=== PATIENT | female | born 1960 | race American Indian/Alaskan Native ===

== ENCOUNTER 2017-04-04 15:49 | Emergency (ER) | payer OTHER ==
[2017-04-04 16:16] VITALS: BMI 36.9
[2017-04-04] MEDS ORDERED: Piperacillin/Tazobact 3.375 gm 100 ML IVPB STA (16:36)
[2017-04-04] MEDS ORDERED: Vancomycin 1gm in NS 250ml 1 GM/250 ML BAG IVPB STA (16:36)
[2017-04-04 18:13] LABS: ADD MANUAL DIFF? NO
[2017-04-04 18:20] LABS: BASO # 0.02 K/mm3 (0.0-2.0); BASO % 0.3 % (0.0-3.0); EOS # 0.3 (0.0-0.7); EOS % 4.4 % (1.5-5.0); GRAN # 4.71 (1.4-6.5); GRAN % 70.9 % (50.0-68.0); HEMATOCRIT 39.8 % (36.0-48.0); LYMPH # 1.2 (1.2-3.4); LYMPH % 18.5 % (22.0-35.0); MEAN CELL VOLUME 89.2 fL (80.0-105.0); MEAN CORPUSCULAR HEMOGLOBIN 29.4 pg (25.0-35.0); MEAN CORPUSCULAR HGB CONC 32.9 g/dl (31.0-37.0); MEAN PLATELET VOLUME 9.4 fl (7.0-11.0); MONO # 0.4 (0.1-0.6); MONO % 5.9 % (1.0-6.0); PLATELET COUNT 294 10^3/uL (120.0-450.0); RED CELL DISTRIBUTION WIDTH 12.9 % (11.5-14.5); WHITE BLOOD COUNT 6.6 10^3/ul (4.5-11.0)
[2017-04-04 18:29] LABS: ALKALINE PHOSPHATASE 104 U/L (38-133); ALT/SGPT 30 U/L (7-56); AST/SGOT 26 U/L (15-39); BILIRUBIN,TOTAL 0.5 mg/dL (0.2-1.3); BLOOD UREA NITROGEN 14 mg/dL (7-21); CALCIUM 9.6 mg/dL (8.4-10.5); CARBON DIOXIDE 29 mmol/L (21-33); CHLORIDE 103 mmol/L (98-107); GFR AFRICAN-AMERICAN > 60; GLUCOSE,RANDOM 87 mg/dL (70-110); POTASSIUM 4.5 mmol/L (3.6-5.0); SODIUM 141 mmol/L (132-148); TOTAL PROTEIN 7.9 g/dL (5.8-8.3)
--- NOTE | 2017-04-04 18:39 | ED PDOC ---
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 pt states she was sent in from [facility]. pt states that she has a flight tomorrow to [place] where she will see her technology specialist. pt denies fever/chills. c/o worsening pain and worsening wounds despite using unnaboot. no cp or sob. no abdominal pain. denies numbness, weakness, or tingling in the extremity. no other complaints. Symptom Course: Worsening Quality: Burning, Throbbing Severity Level: 6 Past Medical History - Provider Review Nursing Documentation Reviewed: Yes - Travel History Have you recently traveled outside [place] w/in the past 3 mons?: No - Infectious Disease Hx of Infectious Diseases: None - Tetanus Immunization Tetanus Immunization: Unknown - Cardiac Hx Hypertension: Yes Other/Comment: PVD - Integumentary Other/Comment: L leg wound - Psychiatric Hx Substance Use: No - Anesthesia Hx Anesthesia: No Family/Social History - Physician Review Nursing Documentation Reviewed: Yes Family/Social History: Unknown Family HX Smoking Status: Never Smoked Hx Alcohol Use: No Hx Substance Use: No Allergies/Home Meds Allergies/Adverse Reactions: Allergies No Known Allergies Allergy (Verified 04/04/17 16:15) Home Medications: Home Meds Medication Instructions Recorded Confirmed Clopidogrel [Plavix] 1 tab PO DAILY 04/04/17 04/04/17 Review of Systems - Review of Systems Constitutional: absent: Fatigue, Fevers Respiratory: absent: SOB, Cough Cardiovascular: absent: Chest Pain, Palpitations Gastrointestinal: absent: Abdominal Pain, Nausea, Vomiting Genitourinary Female: absent: Dysuria Musculoskeletal: Arthralgias Skin: Rash, Skin Lesions, Cellulitis Neurological: absent: Headache, Dizziness Physical Exam Vital Signs Reviewed: Yes Vital Signs Temp Pulse Resp BP Pulse Ox 04/04/17 21:09 98.9 F 89 18 140/90 99 04/04/17 16:18 99.0 F 85 18 137/86 98 Temperature: Afebrile Blood Pressure: Normal Pulse: Regular Respiratory Rate: Normal Appearance: Positive for: Well-Appearing, Non-Toxic, Comfortable Pain Distress: None Mental Status: Positive for: Alert and Oriented X 3 - Systems Exam Head: Present: Atraumatic Mouth: Present: Moist Mucous Membranes Respiratory/Chest: Present: Clear to Auscultation Cardiovascular: Present: Regular Rate and Rhythm Back: Present: Normal Inspection Lower Extremity: Present: NORMAL PULSES, Normal ROM, Tenderness (left leg; there are multiple large ulcerations noted to the anterior and lateral aspect of the lower leg with surrounding erythema; + large 3x5cm ulceration along to dorsal aspect of the foot; sensation and distal pulses intact. cap refill <2. ) , Swelling, Erythema, Neurovascularly Intact, Capillary Refill < 2 s. No: CALF TENDERNESS, Deformity Neurological: Present: GCS=15 Skin: Present: Warm, Dry Psychiatric: Present: Alert, Oriented x 3 Medical Decision Making ED Course and Treatment: 04/04/17 18:39 56yr old female with infected worsening lower leg ulcerations cbc: wnl cmp; wnl blood cultures pending. vancomycin and zosyn ordered IV. pt offered admission to the hospital for cellulitis, infected wounds of lower leg. pt developed few hives to right arm after vancomycin. benadryl given po; no sob , no cp. pt states she has plane flight tomorrow morning and appointment with technology specialist in [place] on tuesday. pt states she can NOT stay in the hospital. Patient has been advised to not leave the emergency room but has decided to go AGAINST MEDICAL ADVICE. The patient possesses capacity to make decisions and has voiced understanding to all my warnings of potential worsening of the condition for which medical care was sought. I have discussed all known and potential risks and consequences to the patient leaving AGAINST MEDICAL ADVICE. Patient is leaving against medical advise. AMA form signed. witness by AMADEO graham pt was advised of the risk of , disability or worsening of symptoms, sepsis , loss of limb. pt was advised to return immediately if she chooses to continue her care or if symptoms worsen,persist or if new symptoms develop. impression; cellulitis, wound infection Return if you wish to continue your care. bactrim; 1 tablet twice daily x 7 days kelfex; 1 capsule 4 times daily x 7 days follow up with the technology specialist followup with the primary care physician within the next 2 days return immediately if symptoms worsen, persist or if new symptoms develop. 04/04/17 21:15 - Lab Interpretations Lab Results: 04/04/17 18:05 04/04/17 18:05 Lab Results 04/04/17 18:05: WBC 6.6, RBC 4.46, Hgb 13.1, Hct 39.8, MCV 89.2, MCH 29.4, MCHC 32.9, RDW 12.9, Plt Count 294, MPV 9.4, Gran % 70.9 H, Lymph % (Auto) 18.5 L, [place] % (Auto) 5.9, Eos % (Auto) 4.4, Baso % (Auto) 0.3, Gran # 4.71, Lymph # 1.2 , [place] # 0.4, Eos # 0.3, Baso # 0.02 04/04/17 18:05: Sodium 141, Potassium 4.5, Chloride 103, Carbon Dioxide 29, Anion Gap 14, BUN 14, Creatinine 0.6, Est GFR ( Amer) > 60, Est GFR (Non- Af Amer) > 60, Random Glucose 87, Calcium 9.6, Total Bilirubin 0.5, AST 26, ALT 30, Alkaline Phosphatase 104, Total Protein 7.9, Albumin 4.0, Globulin 3.9, Albumin/Globulin Ratio 1.0 L - Medication Orders Current Medication Orders: Discontinued Medications Diphenhydramine HCl (Benadryl) 25 mg PO ONCE ONE Stop: 04/04/17 20:22 Last Admin: 04/04/17 20:29 Dose: 25 mg Vancomycin HCl (Vancomycin 1gm) 1 gm in 250 mls @ 167 mls/hr IVPB STAT STA PRN Reason: Protocol Stop: 04/04/17 18:05 Last Admin: 04/04/17 19:01 Dose: 167 mls/hr Piperacillin Sod/Tazobactam Sod (Zosyn 3.375 In Ns 100ml) 100 mls @ 200 mls/hr IVPB STAT STA PRN Reason: Protocol Stop: 04/04/17 17:05 Last Admin: 04/04/17 18:25 Dose: 200 mls/hr Tramadol HCl (Ultram) 50 mg PO STAT STA Stop: 04/04/17 18:21 Last Admin: 04/04/17 19:03 Dose: 50 mg Disposition/Present on Arrival - Present on Arrival Any Indicators Present on Arrival: No History of DVT/PE: No History of Uncontrolled Diabetes: No Urinary Catheter: No History of Decub. Ulcer: No History Surgical Site Infection Following: None - Disposition Have Diagnosis and Disposition been Completed?: Yes Diagnosis: Cellulitis, leg, Leg ulcer Disposition: AGAINST MEDICAL ADVICE Disposition Time: 21:05 Patient Plan: Other (AMA) Patient Problems: Current Active Problems Problem Status Onset Cellulitis, leg Acute Leg ulcer Acute Condition: GUARDED Discharge Instructions (ExitCare): Cellulitis (ED) Additional Instructions: Return if you wish to continue your care. bactrim; 1 tablet twice daily x 7 days kelfex; 1 capsule 4 times daily x 7 days follow up with the technology specialist followup with the primary care physician within the next 2 days return immediately if symptoms worsen, persist or if new symptoms develop Prescriptions: Cephalexin [Keflex] 500 mg PO QID #28 capsule Sulfamethoxazole/Trimethoprim [Bactrim DS 800 mg-160 mg] 1 tab PO BID #14 tab traMADol [Ultram] 50 mg PO Q6H PRN #8 tab PRN Reason: moderate to severe pain Referrals: Lennox Bhat MD [Staff Provider] - Follow up with primary Dory Anderson DPM [Staff Provider] - Follow up with primary Rowan Hinds MD [Staff Provider] - Follow up with primary
[2017-04-04 21:09] VITALS: BP 140/90; O2SAT 99
[2017-04-04 21:23] VITALS: PULSE 70; RESP 16; TEMP 98
== END 2017-04-04 21:23 | disposition left against medical advice (07) ==
LOC: ED 15:49
DX: L97.929 Non-pressure chronic ulcer of unspecified part of left lower leg with unspecified severity (principal); L03.116 Cellulitis of left lower limb
CPT/HCPCS: 80053; 85025; 87040; 96374; 96375; 99284; J2543